=== PATIENT | female | born 1970 | race African-American/Black ===

== ENCOUNTER 2019-06-24 23:46 | Emergency (ER) | payer MEDICAID, OTHER ==
[~2019-06-24] VITALS: Ht 170.2 cm; Wt 84.0 kg
[2019-06-25 01:51] VITALS: BP 146/98
[2019-06-25] MEDS ORDERED: NON FORMULARY PATIENT HOME MED PO SCH (02:30)
[2019-06-25] MEDS ORDERED: PENICILLIN G BENZATHINE 2,400,000 UNITS/4ML SYR IM ONE (02:30)
[2019-06-25] MEDS ORDERED: METRONIDAZOLE 500MG TABLET PO SCH (03:00)
== END 2019-06-25 04:25 | disposition home or self-care (01) ==
LOC: ER 23:46
DX: A64 Unspecified sexually transmitted disease (principal); F12.10 Cannabis abuse, uncomplicated; F17.200 Nicotine dependence, unspecified, uncomplicated; Z98.890 Other specified postprocedural states; Z88.5 Allergy status to narcotic agent
CPT/HCPCS: 96372; 99283; J0561

== ENCOUNTER 2023-05-15 00:03 | Emergency (ER) | payer MEDICAID ==
[~2023-05-15] VITALS: Ht 170.2 cm; Wt 96.0 kg
[2023-05-15 00:24] VITALS: BP 117/96; O2SAT 97
[2023-05-15] MEDS ORDERED: LIDOCAINE 5% PATCH TOP ONE (03:00)
[2023-05-15] MEDS ORDERED: KETOROLAC 60MG/2ML VIAL IM ONE (03:00)
[2023-05-15] MEDS ORDERED: HYDROCODONE/ACETAMINOPHEN 5/325MG TABLET PO ONE (03:00)
[2023-05-15 05:14] LABS: TROPONIN I HIGH SENSITIVITY 46 ng/L (<54)
[2023-05-15] MEDS ORDERED: LIDO700A15 TP (05:50)
[2023-05-15] MEDS ORDERED: ACET-2708 MT (05:50)
[2023-05-15 06:29] VITALS: PULSE 105; RESP 15; TEMP 98.2
== END 2023-05-15 06:31 | disposition home or self-care (01) ==
LOC: ER 01:00
DX: R07.81 Pleurodynia (principal); S20.212A Contusion of left front wall of thorax, initial encounter; I44.4 Left anterior fascicular block; R04.2 Hemoptysis; Z88.5 Allergy status to narcotic agent; Z00.00 Encounter for general adult medical examination without abnormal findings; Y04.0XXA Assault by unarmed brawl or fight, initial encounter; Y93.89 Activity, other specified; Y92.89 Other specified places as the place of occurrence of the external cause; Y99.8 Other external cause status
CPT/HCPCS: 81025; 84484; 36415; 71250; 93005; 96372; 99285; J1885; Z7610

== ENCOUNTER 2024-03-27 15:44 | Emergency (ER) | payer MEDICAID ==
[~2024-03-27] VITALS: Ht 170.2 cm; Wt 91.0 kg
[~2024-03-27 15:44] MED LIST: ACET-2708 MT; LIDO700A15 TP
[2024-03-27 16:11] VITALS: O2SAT 98
[2024-03-27] MEDS: IBUPROFEN 400MG TABLET PO ONE (17:27)
[2024-03-27] MEDS: ALBUTEROL (0.083%) 2.5MG/3ML NEB HHN STA (17:52)
[2024-03-27 17:54] VITALS: PULSE 104; RESP 20
[2024-03-27 18:07] LABS: BASOPHILS % 0.9 % (0.0-2.0); DIFFERENTIAL COMMENT 0; EOSINOPHILS % 2.1 % (0.0-5.0); HEMATOCRIT. 41.5 % (36.0-48.0); LYMPHOCYTES % 19.1 % (20.0-50.0); MEAN CORPUSCULAR HEMOGLOBIN 31.1 pg (28.0-32.0); MEAN CORPUSCULAR HGB CONC 33.7 g/dL (31.0-37.0); MEAN CORPUSCULAR VOLUME 92.5 fL (81.0-99.0); MEAN PLATELET VOLUME 7.3 fl (7.4-10.4); MONOCYTES % 6.7 % (2.0-8.0); NEUTROPHILS % 71.2 % (40.0-76.0); PLATELET 968 x1000/uL (130-400); RED BLOOD CELL COUNT 4.49 mill/uL (4.2-5.4); RED CELL DISTRIBUTION WIDTH 13.9 % (11.6-14.6); WHITE BLOOD COUNT 14.2 x1000/uL (4.5-11.0)
[2024-03-27 18:15] LABS: CARBON DIOXIDE 28 mEq/L (21-32); CHLORIDE 108 mEq/L (98-107); POTASSIUM 3.6 mEq/L (3.5-5.1); SODIUM 141 mEq/L (136-145)
[2024-03-27 18:16] LABS: CALCIUM 9.3 mg/dL (8.7-10.4)
[2024-03-27 18:20] LABS: CREATININE 0.7 mg/dL (0.6-1.0); GLUCOSE 75 mg/dL (70-105)
[2024-03-27 18:21] LABS: TROPONIN I HIGH SENSITIVITY 5 ng/L (3.0-34); UREA NITROGEN BLOOD 9 mg/dL (9-23)
[2024-03-27] MEDS ORDERED: IBUP-2028 MT (18:55)
[2024-03-27] MEDS ORDERED: ALBU90AE INH (18:55)
[2024-03-27] MEDS ORDERED: AZIT250T12 MT (18:55)
[2024-03-27 19:10] VITALS: BP 133/69; PULSE 100; RESP 20; TEMP 98.6
== END 2024-03-27 19:10 | disposition home or self-care (01) ==
LOC: ER 18:03
DX: J02.9 Acute pharyngitis, unspecified (principal); B34.9 Viral infection, unspecified; F12.10 Cannabis abuse, uncomplicated; Z98.890 Other specified postprocedural states; Z79.899 Other long term (current) drug therapy; Z20.822 Contact with and (suspected) exposure to COVID-19
CPT/HCPCS: 80048; 87430; 85025; 84484; 87070; 36415; 71045; 94640; 93005; 99285; 87426; Z7610 ×3

== ENCOUNTER 2024-06-01 08:39 | Emergency (ER) | payer MEDICAID ==
[~2024-06-01] VITALS: Ht 170.2 cm; Wt 90.0 kg
[~2024-06-01 08:39] MED LIST changes: +ALBU90AE INH; +AZIT250T12 MT; +IBUP-2028 MT
[2024-06-01 08:46] VITALS: O2SAT 100
[2024-06-01] MEDS: ACETAMINOPHEN 325MG TABLET PO ONE (10:16)
[2024-06-01] MEDS: IBUPROFEN 400MG TABLET PO ONE (10:16)
[2024-06-01] MEDS: LIDOCAINE 5% PATCH TOP SCH (10:17)
[2024-06-01] MEDS ORDERED: ACET-2708 MT (11:19)
[2024-06-01] MEDS ORDERED: IBUP-2028 MT (11:19)
[2024-06-01 11:32] VITALS: BP 143/88; PULSE 68; RESP 19; TEMP 36.66960; O2SAT 98
== END 2024-06-01 11:33 | disposition home or self-care (01) ==
LOC: ER 08:48
DX: M79.672 Pain in left foot (principal); M25.512 Pain in left shoulder; F12.10 Cannabis abuse, uncomplicated; Z88.5 Allergy status to narcotic agent; Z79.899 Other long term (current) drug therapy; Z98.51 Tubal ligation status; W10.9XXA Fall (on) (from) unspecified stairs and steps, initial encounter; Y93.89 Activity, other specified; Y92.89 Other specified places as the place of occurrence of the external cause; Y99.8 Other external cause status
CPT/HCPCS: 73030; 73630; 99284